=== PATIENT | female | born 1980 | race Caucasian/White ===

== ENCOUNTER 2020-05-12 10:45 | Outpatient (REF) | payer BC, SELFPAY ==
--- NOTE | 2020-05-12 09:15 | PAPFT_PTH ---
PATIENT: Dora Daly LOC: [facility] U#:[id number] AGE/SX: 39/F ROOM: RE05/12/[address]: Rebekah Grimm NP : [id number] BED: DIS: 05/12/2020 SPEC #: [id number] RECD: 05/12/20 13:00 STATUS: AMY VELIZ #: [id number] KIT: 05/12/20 09:[address]: Rebekah Grimm NP DEPT: [facility] Cytology RECD BY: Tracy Simental ENTERED: 05/12/20 13:01 SP TYPE: PAPFT OTHR DR: Unknown,Unknown Tissues: 1 - CX/ENDOCX FOR PAP SMEARS Procedures: PAP THIN PREP/UVM Screening HPV DNA PROBE Comments: [id number]
== END 2020-05-12 10:46 | disposition home or self-care (01) ==
LOC: LBN 10:45
PROVIDERS: Visit Provider Nurse Practitioner Women's Health
DX: Z12.4 Encounter for screening for malignant neoplasm of cervix (principal); Z11.51 Encounter for screening for human papillomavirus (HPV)
CPT/HCPCS: 88142; 87624

== ENCOUNTER 2020-06-15 03:29 | Outpatient (CLI) | payer BC, SELFPAY ==
[2020-06-15 11:11] LABS: TSH (W/Ref FT4) 0.92 uIU/mL (0.36-3.74)
== END 2020-06-15 03:30 | disposition home or self-care (01) ==
LOC: LBO 03:29
PROVIDERS: PCP Nurse Practitioner Adult Health; Visit Provider Nurse Practitioner Women's Health
DX: L65.9 Nonscarring hair loss, unspecified (principal); Z83.49 Family history of other endocrine, nutritional and metabolic diseases
CPT/HCPCS: 36415; 84443

== ENCOUNTER 2020-08-26 02:10 | Outpatient (CLI) | payer BC, SELFPAY ==
--- NOTE | 2020-08-26 09:00 | DI.MAMMO_ITS ---
Exam(s) MAMMO SCREENING EXAM: MAMMO SCREENING CLINICAL HISTORY: screening TECHNIQUE: Mammograms were interpreted according to the usual protocol including computer analysis w [employer] CAD system, tomosynthesis and C-view imaging. COMPARISON: None. Baseline examination. FINDINGS: The breasts are composed of heterogeneously dense fibroglandular densities, Breast Density category C . In the left breast, there are 2 adjacent circumscribed nodule seen in the subareolar region. There i s an additional circumscribed nodule seen in the medial central tissue. Spot compression views and u ltrasound are requested for further evaluation. No suspicious masses or suspicious microcalcificatio ns are seen in the right breast.. No skin thickening or abnormal axillary lymph nodes are seen. . IMPRESSION: BI-RADS Cat 0 - Assessment Incomplete: Need additional imaging evaluation Breast Density Category C, heterogeneously Dense. The mammogram demonstrates the patient's breast tissue is dense. Dense breast tissue is very common a nd is not abnormal but dense breast tissue can make it harder to find cancer on a mammogram. Also, de nse breast tissue may increase breast cancer risk. This information about the result of the mammogram report was provided to the patient to raise their awareness. Use this report when you speak with the patient about their risks for breast cancer, which includes their family history. At that time, you may recommend additional screening tests (Ultrasound or MRI) as they might be useful based on their r isk. A negative radiographic report should not delay biopsy if a dominant or clinically suspicious mass is present. Up to ten percent of cancers are not identified on mammography. A negative report may reinforce clinical impression. Adenosis and dense breasts may obscure an underlying neoplasm. False positive reports average 6 to 10%.
== END 2020-08-26 02:30 ==
PROVIDERS: PCP Nurse Practitioner Adult Health; Visit Provider Nurse Practitioner Women's Health
DX: Z12.31 Encounter for screening mammogram for malignant neoplasm of breast (principal); R92.8 Other abnormal and inconclusive findings on diagnostic imaging of breast
CPT/HCPCS: 77063; 77067

== ENCOUNTER 2020-09-14 02:51 | Outpatient (CLI) | payer BC, SELFPAY ==
--- NOTE | 2020-09-14 | DI.US_ITS ---
Exam(s) MG MAMMO SCREEN CALL BACK UNI US BREAST LT LIMITED EXAM: MG MAMMO SCREEN CALL BACK UNI and U/S breast LT limited CLINICAL HISTORY: F/U ABNL MAMMO, EVAL NODULE. TECHNIQUE: Craniocaudal and mediolateral oblique Full Field Digital Mammography views of the left br east with Computer Aided Diagnosis followed by Tomosynthesis and left breast ultrasound. COMPARISON: Priors available for comparison. FINDINGS: Mammography/Tomosynthesis: Masses/Architectural Distortion: There is again seen a well-circumscribed ovoid density in the medial half of the left breast on the additional views. A 0.7 cm well-circumscribed nodule is seen in the retroareolar region of the left breast. Microcalcifictions: No suspicious pleomorphic-type are seen. Skin Thickening/Nipple Retraction: None. Left breast US: Echotexture: Normal appearance of the glandular tissue. Shadowing: No suspicious foci. Cyst: None. Solid lesions: There is a well-circumscribed radially oriented isoechoic nodule at the 10 o'clock pos ition of the left breast 3 cm from the nipple. It measures 1.1 x 0.7 x 1.3 cm. This would appear to correspond to the nodule seen on the mammogram. This may represent a benign lesion such as a fibroa denoma. Ductal dilation: There are few mildly dilated ducts at the 12 o'clock position 1 cm from the nipple. This likely corresponds to the mammographic finding. IMPRESSION: 1. No definite evidence of malignancy is noted. 2. A six-month follow-up left mammogram and ultrasound are recommended for re-evaluation. 3. The findings were discussed with the patient on the date of the examination. BI-RADS Category 3 - 6 month - Probably Benign Finding: Recommend follow-up imaging in 6 months Breast Density - Category C - Heterogeneously dense Breast density Category C or D implies that the patient has dense breast tissue. Dense breast tissue can make it harder to find cancer on a mammogram. Dense breast tissue is also associated with an incr eased risk of breast cancer. This information about the result of the mammogram report was provided to the patient to raise their awareness. Use this report when you speak with the patient about their risks for breast cancer, which includes their family history. At that time, you may recommend additional screening tests (Ultrasoun d or MRI) as these tests may add significant information. A negative radiographic report should not delay biopsy if a dominant or clinically suspicious mass is present. Up to ten percent of cancers are not identified on mammography. A negative report may reinforce clinical impression. Adenosis and dense breasts may obscure an underlying neoplasm. False positive reports average 6 to 10%. Patient will receive a letter notifying them of these results.
== END 2020-09-14 03:11 ==
PROVIDERS: PCP Nurse Practitioner Adult Health; Visit Provider Nurse Practitioner Women's Health
DX: R92.8 Other abnormal and inconclusive findings on diagnostic imaging of breast (principal); N63.22 Unspecified lump in the left breast, upper inner quadrant
CPT/HCPCS: 76642; 77063; 77067

== ENCOUNTER 2021-01-04 08:38 | Outpatient (CLI) | payer BC, SELFPAY ==
[2021-01-04 09:18] LABS: HCT 41.9 % (36.0-46.0); HGB 13.5 g/dL (11.2-15.7); MCHC 32.2 % (32.0-36.0); MCV 86.9 fL (80-95); MPV 10.7 fL (8.0-11.0); Platelet Count 281 10^3/uL (130-400); RBC 4.82 10^6/uL (3.93-5.22); RDW 13.2 % (11.7-14.6); RDW-SD 42.2 fL; WBC 5.07 10^3/uL (4.4-10.8)
[2021-01-04 10:16] LABS: Anion Gap 6.9 mmol/L (3-11); BUN 11 mg/dL (7-18); CO2 30.1 mmol/L (21.0-32.0); CREATININE 0.7 mg/dL (0.55-1.02); Calcium 8.7 mg/dL (8.5-10.1); Calculated LDL 151 mg/dL (<100); Chloride 105 mmol/L (98-107); Cholesterol 245 mg/dL (<200); Glucose 108 mg/dL (74-106); HDL Cholesterol 76 mg/dL (40-60); Potassium 4.5 mmol/L (3.5-5.1); Sodium 142 mmol/L (136-145); Triglyceride 91 mg/dL (<150)
[2021-01-04 10:34] LABS: FREE T4 0.92 ng/dL (0.76-1.46)
[2021-01-04 17:18] LABS: T3,Free 3.6 pg/mL (2.8-5.3)
[2021-01-05 09:01] LABS: Hemoglobin A1C 5.5 % (<5.7)
== END 2021-01-04 08:39 | disposition home or self-care (01) ==
LOC: LBO 08:38
PROVIDERS: PCP Nurse Practitioner Adult Health; Visit Provider Nurse Practitioner Adult Health
DX: R63.5 Abnormal weight gain; R73.01 Impaired fasting glucose; Z13.220 Encounter for screening for lipoid disorders; D22.9 Melanocytic nevi, unspecified
CPT/HCPCS: 36415; 80048; 80061; 85027; 83036; 84439; 84481

== ENCOUNTER 2021-01-04 10:16 | Outpatient (REF) | payer BC, SELFPAY | END 2021-01-04 10:17 | disposition home or self-care (01) | LOC: NCHCN 10:16 | PROVIDERS: PCP Nurse Practitioner Adult Health; Visit Provider Nurse Practitioner Adult Health | DX: R19.7 Diarrhea, unspecified (principal); B82.0 Intestinal helminthiasis, unspecified; R11.0 Nausea; L29.0 Pruritus ani | CPT/HCPCS: 87177 ==

== ENCOUNTER 2021-02-01 01:32 | Outpatient (CLI) | payer BC, SELFPAY ==
--- NOTE | 2021-02-01 06:45 | DI.MAMMO_ITS ---
Exam(s) US BREAST LT COMPLETE MG MAMMO DIAGNOSTIC UNI EXAM: MG MAMMO DIAGNOSTIC UNI and U/S breast LT CLINICAL HISTORY: 6 mo f/u,f/u abnl mammo, r92.8. TECHNIQUE: Craniocaudal and mediolateral oblique Full Field Digital Mammography views of the left br east with Computer Aided Diagnosis followed by Tomosynthesis and left breast ultrasound. COMPARISON: Priors available for comparison. FINDINGS: Mammography/Tomosynthesis: Masses/Architectural Distortion: The well-circumscribed round nodule in the medial left breast appear s stable. The smaller retroareolar nodule appears unchanged compared to the prior examination. Microcalcifictions: No suspicious pleomorphic-type are seen. Skin Thickening/Nipple Retraction: None. Left breast US: A targeted left breast ultrasound was performed. Echotexture: Normal appearance of the glandular tissue. Shadowing: No suspicious foci. Cyst: None. Solid lesions: The ovoid radially oriented hypoechoic 1.1 cm mass at the 10 o'clock position 3 cm fro m the nipple appears stable. Ductal dilation: The collection of ducts in the retroareolar region of the left breast at 12 o'clock 1 cm from the nipple appears stable. IMPRESSION: 1. No evidence of malignancy is noted. 2. A six-month follow-up left mammogram and ultrasound are requested for re-evaluation. 3. The findings were discussed with the patient on the date of the examination. BI-RADS Category 3 - 6 month - Probably Benign Finding: Recommend follow-up imaging in 6 months Breast Density - Category C - Heterogeneously dense Breast density Category C or D implies that the patient has dense breast tissue. Dense breast tissue can make it harder to find cancer on a mammogram. Dense breast tissue is also associated with an incr eased risk of breast cancer. This information about the result of the mammogram report was provided to the patient to raise their awareness. Use this report when you speak with the patient about their risks for breast cancer, which includes their family history. At that time, you may recommend additional screening tests (Ultrasoun d or MRI) as these tests may add significant information. A negative radiographic report should not delay biopsy if a dominant or clinically suspicious mass is present. Up to ten percent of cancers are not identified on mammography. A negative report may reinforce clinical impression. Adenosis and dense breasts may obscure an underlying neoplasm. False positive reports average 6 to 10%. Patient will receive a letter notifying them of these results.
== END 2021-02-01 01:52 ==
PROVIDERS: PCP Nurse Practitioner Adult Health; Visit Provider Nurse Practitioner Women's Health
DX: R92.8 Other abnormal and inconclusive findings on diagnostic imaging of breast (principal); N63.22 Unspecified lump in the left breast, upper inner quadrant; N60.42 Mammary duct ectasia of left breast
CPT/HCPCS: 76642; 77061; 77065; G0279

== ENCOUNTER → 2021-08-04 03:04 | Outpatient (CLI) | payer BC, SELFPAY ==
--- NOTE | 2021-08-04 08:30 | DI.MAMMO_ITS ---
Exam(s) US BREAST LT COMPLETE US BREAST RT COMPLETE MG MAMMO DIAGNOSTIC BI EXAM: MG MAMMO DIAGNOSTIC BI AND BILATERAL COMPLETE BREAST ULTRASOUND CLINICAL HISTORY: 6 month follow up, 6 mo f/u, f/u to abnl mammo, R92.8. TECHNIQUE: Both CC and MLO mammographic images of both breast were obtained with 3D tomosynthesis te chnique and utilizing computer aided detection (CAD). Also performed bilateral spot compression view s BILATERAL COMPLETE BREAST ULTRASOUND: All 4 quadrants of both breasts were scanned as were the retroa reolar regions. Also both axillary regions scanned. COMPARISON: Prior mammograms were reviewed, the most recent being January 2021. Prior ultrasound left breast also reviewed FINDINGS: DIAGNOSTIC BILATERAL MAMMOGRAM: The noncalcified lobulated nodule in the left breast is again noted and exhibits minimal if any signi ficant change. Possible additional nodule seen but spot compression view performed renders this area less concerning and similar in appearance to prior mammograms. In the opposite-right breast there is a skin mole noted inferiorly. Other nodular densities also mireya ear to dissipate on additional spot compression CC view performed today. There are no malignant-appearing microcalcification groups in either breast and there is no new archi tectural distortion or skin thickening-traction. BILATERAL COMPLETE BREAST ULTRASOUND: LEFT BREAST: At the 12 o'clock position the previously described solid lobulated well-defined nodule (previously described at 10 o'clock position) is again noted, measuring 11 by a 6 millimeters, unchan ged. It exhibits slightly increased through transmission. This is most probably a fibroadenoma. Th ere are no other focal ultrasound findings in all 4 quadrants of the left breast and there is no mayela opathy in the left axilla. RIGHT BREAST: At the 9 o'clock position there is a benign-appearing wider than taller 7 x 3 millimete r finding which is either hemorrhagic microcyst or another smaller fibroadenoma. It exhibits slightl y increased through transmission. There are no other focal ultrasound findings in the 4 quadrants of the right breast. There is no adenopathy in the right axilla. IMPRESSION: 1. Stable mammographic findings. 2. Stable size and appearance of the left breast nodule on ultrasound which is probably a fibroadenom a, unchanged from baseline mammogram and baseline ultrasound of the August 2020. 3. Solitary benign-appearing finding in the opposite-right breast at the 9 o'clock position which is either a hemorrhagic microcyst or smaller fibroadenoma. Today was the 1st ultrasound of the right br east. This finding is hidden subjacent to her dense fibroglandular tissue on mammography. Appropriate follow-up (as discussed by myself with the patient today) is repeat bilateral breast ultr asound exam in 6 months. As I explained to this patient today, we must establish that these findings are stable for a total of 2 years on a q.6 months basis. . The patient was informed of the findings and follow-up recommendations prior to leaving the [facility] t today. BI-RADS Category 3 - 6 month - Probably Benign Finding: Recommend follow-up BILATERAL BREAST ULTRASOU ND in 6 months Density: Breast density Category C or D implies that the patient has dense breast tissue. Dense breast tissue can make it harder to find cancer on a mammogram. Dense breast tissue is also associated with an incr eased risk of breast cancer. This information about the result of the mammogram report was provided to the patient to raise their awareness. Use this report when you speak with the patient about their risks for breast cancer, which includes their family history. At that time, you may recommend additional screening tests (Ultrasoun d or MRI) as these tests may add significant information. A negative radiographic report should not delay biopsy if a dominant or clinically suspicious mass is present. Up to ten percent of cancers are not identified on mammography. A negative report may reinforce clinical impression. Adenosis and dense breasts may obscure an underlying neoplasm. False positive reports average 6 to 10%. Patient will receive a letter notifying them of these results.
== END ==
PROVIDERS: PCP Nurse Practitioner Adult Health; Visit Provider Nurse Practitioner Women's Health
DX: R92.8 Other abnormal and inconclusive findings on diagnostic imaging of breast (principal); N63.25 Unspecified lump in the left breast, overlapping quadrants; R92.2 Inconclusive mammogram
CPT/HCPCS: 76642; 77062; 77066; G0279

== ENCOUNTER 2022-02-07 02:19 | Outpatient (CLI) | payer BC, SELFPAY ==
[2022-02-07 12:36] LABS: HCT 40.2 % (36.0-46.0); HGB 13.1 g/dL (11.2-15.7); MCH 28.3 pg (27.0-33.0); MCHC 32.6 % (32.0-36.0); MCV 87 fL (80-95); MPV 11.7 fL (8.0-11.0); Platelet Count 251 10^3/uL (130-400); RBC 4.63 10^6/uL (3.93-5.22); RDW 13.2 % (11.7-14.6); WBC 5.83 10^3/uL (4.4-10.8)
[2022-02-07 13:22] LABS: ALT 19 U/L (14-59); AST 24 U/L (15-37); Albumin 3.6 g/dL (3.4-5.0); Alkaline Phosphatase 52 U/L (46-116); Anion Gap 3.8 mmol/L (3-11); BUN 11 mg/dL (7-18); Bilirubin, Total 0.5 mg/dL (0.2-1.0); CO2 30.2 mmol/L (21.0-32.0); CREATININE 0.8 mg/dL (0.55-1.02); Calcium 8.5 mg/dL (8.5-10.1); Calculated LDL 129 mg/dL (<100); Chloride 104 mmol/L (98-107); Cholesterol 215 mg/dL (<200); Estimated GFR 94.87 (mL/min/1.73m2); Folate 7.8 ng/mL (8.6-20.0); Glucose 96 mg/dL (74-106); HDL Cholesterol 73 mg/dL (40-60); Potassium 4.3 mmol/L (3.5-5.1); Sodium 138 mmol/L (136-145); Triglyceride 66 mg/dL (<150); Vitamin B12 512 pg/mL (193-986)
== END 2022-02-07 02:20 | disposition home or self-care (01) ==
LOC: LOS 02:19
PROVIDERS: PCP Nurse Practitioner Adult Health; Visit Provider Nurse Practitioner Adult Health
DX: I73.00 Raynaud's syndrome without gangrene (principal); L65.9 Nonscarring hair loss, unspecified; R73.01 Impaired fasting glucose; Z13.1 Encounter for screening for diabetes mellitus; Z13.220 Encounter for screening for lipoid disorders
CPT/HCPCS: 36415; 80053; 80061; 85027; 82607; 82746

== ENCOUNTER 2022-07-26 03:02 | Outpatient (CLI) | payer BC, SELFPAY ==
--- NOTE | 2022-07-26 07:50 | DI.US_ITS ---
Exam(s) US BREAST LT LIMITED MG MAMMO DIAGNOSTIC BI EXAM: MG MAMMO DIAGNOSTIC BI and U/S breast LT limited CLINICAL HISTORY: 6 month f/u,F/U MAMMO, R92.8. TECHNIQUE: Craniocaudal and mediolateral oblique Full Field Digital Mammography views with Computer Aided Diagnosis followed by Tomosynthesis and left breast ultrasound. COMPARISON: Comparison is made with prior examinations. FINDINGS: Mammography/Tomosynthesis: Masses/Architectural Distortion: There is stable bilateral breast nodules. The nodule in the medial left breast is unchanged in size. No areas of architectural distortion are seen. Microcalcifictions: No suspicious pleomorphic-type are seen. Skin Thickening/Nipple Retraction: None. Limited left breast US: Echotexture: Normal appearance of the glandular tissue. Shadowing: No suspicious foci. Cyst: The well-circumscribed hypoechoic nodule 9-10 o'clock position of the left breast 3 cm from the nipple is unchanged. Solid lesions: None seen. Ductal dilation: None. IMPRESSION: 1. No evidence of malignancy is noted. 2. Unless there is more urgent need, follow-up screening mammography is recommended, as per [place] [employer] guidelines. 3. The findings were discussed with the patient on the date of the examination. BI-RADS Category 2 - Benign Findings Breast Density - Category C - Heterogeneously dense Breast density Category C or D implies that the patient has dense breast tissue. Dense breast tissue can make it harder to find cancer on a mammogram. Dense breast tissue is also associated with an incr eased risk of breast cancer. This information about the result of the mammogram report was provided to the patient to raise their awareness. Use this report when you speak with the patient about their risks for breast cancer, which includes their family history. At that time, you may recommend additional screening tests (Ultrasoun d or MRI) as these tests may add significant information. A negative radiographic report should not delay biopsy if a dominant or clinically suspicious mass is present. Up to ten percent of cancers are not identified on mammography. A negative report may reinforce clinical impression. Adenosis and dense breasts may obscure an underlying neoplasm. False positive reports average 6 to 10%. Patient will receive a letter notifying them of these results.
== END 2022-07-26 03:22 ==
LOC: DI 03:02
PROVIDERS: PCP Nurse Practitioner Adult Health; Visit Provider Nurse Practitioner Women's Health
DX: R92.8 Other abnormal and inconclusive findings on diagnostic imaging of breast (principal); Z12.31 Encounter for screening mammogram for malignant neoplasm of breast
CPT/HCPCS: 76642; 77062; 77066; G0279

== ENCOUNTER 2022-12-01 04:32 | Outpatient (CLI) | payer BC, SELFPAY ==
[2022-12-01 08:11] LABS: HCT 41.6 % (36.0-46.0); HGB 13.7 g/dL (11.2-15.7); MCH 28.2 pg (27.0-33.0); MCHC 32.9 % (32.0-36.0); MCV 86 fL (80-95); MPV 10.4 fL (8.0-11.0); Platelet Count 243 10^3/uL (130-400); RBC 4.85 10^6/uL (3.93-5.22); RDW 13.2 % (11.7-14.6); RDW-SD 41.5 fL; WBC 5.92 10^3/uL (4.4-10.8)
[2022-12-01 08:53] LABS: Anion Gap 6.5 mmol/L (3-11); BUN 11 mg/dL (7-18); CO2 27.5 mmol/L (21.0-32.0); CREATININE 0.7 mg/dL (0.55-1.02); Calcium 8.8 mg/dL (8.5-10.1); Calculated LDL 123 mg/dL (<100); Chloride 105 mmol/L (98-107); Cholesterol 208 mg/dL (<200); Estimated GFR 110.67 (mL/min/1.73m2); Ferritin 23 ng/mL (8-252); Folate 13.2 ng/mL (8.6-20.0); Glucose 108 mg/dL (74-106); HDL Cholesterol 71 mg/dL (40-60); Magnesium 2.2 mg/dL (1.8-2.4); Potassium 4.3 mmol/L (3.5-5.1); Sodium 139 mmol/L (136-145); TSH (W/Ref FT4) 1.13 uIU/mL (0.36-3.74); Triglyceride 72 mg/dL (<150); Vitamin B12 478 pg/mL (193-986)
[2022-12-01 09:18] LABS: Vitamin D 25 Total 20.9 ng/mL (30-100)
== END 2022-12-01 04:33 | disposition home or self-care (01) ==
LOC: LBO 04:32
PROVIDERS: Absent Provider Nurse Practitioner Adult Health; PCP Nurse Practitioner Adult Health; Visit Provider Nurse Practitioner Adult Health
DX: N95.9 Unspecified menopausal and perimenopausal disorder (principal); R73.01 Impaired fasting glucose; Z13.1 Encounter for screening for diabetes mellitus; Z13.220 Encounter for screening for lipoid disorders; Z13.29 Encounter for screening for other suspected endocrine disorder
CPT/HCPCS: 36415; 80048; 80061; 82306; 85027; 82607; 82728; 82746; 83735; 84443

== ENCOUNTER 2023-12-28 00:21 | Outpatient (CLI) | payer BC, SELFPAY ==
--- OUTSIDE RECORDS SUMMARY | 2023-12-28 00:23 | XMS_ITS | Encounter Summary ---
Author Organization [facility] Address [address] [place] [address] Care Team Providers Care Fast Food Team Member Name Role Phone Unavailable Primary Care Provider Unavailabl e Encounter Details Date Type Department Care Team (Late st Contact Info) Description 01/04/2021 Lab Requisition [facility] Pathology & [place] [address] Outr Resulting Lab, Provider Social History Tobacco Use Types Packs/Day Years Used Date Smoking Tobacco: Never Assessed Sex and Gender Information Value Date Recorded Sex Assigned at Not on file Gender Identity Not on file Sexual Orientation Not on file documented as of this encounter Plan of Treatment Not on file documented as of this encounter Procedures Procedure Name Priority Date/Time Associated Diagnosis Comments T3 FREE Routine 01/04/2021 8:21 EST documented in this encounter Results * T3 FREE (01/04/2021 8:21 EST) T3, Free 3.6 2.8 - 5.3 pg/mL 01/04/2021 17:12 EST [facility] Blood VENOUS BLOOD / Unknown 01/04/2021 8:21 EST 01/04/2021 16:33 EST Provider Outr Resulting Lab CHEMISTRY & BLOOD GAS ORDERABLES [facility] [address] [place] [address] documented in this encounter Visit Diagnoses Not on filedocumented in this encounter
--- OUTSIDE RECORDS SUMMARY | 2023-12-28 00:23 | XMS_ITS | Encounter Summary ---
Author Organization [facility] Address [address] [place] [address] Care Team Providers Care Generating Plant Superintendent Name Role Phone Unavailable Primary Care Provider Unavailabl e Encounter Details Date Type Department Care Team (Late st Contact Info) Description 05/14/2020 Lab Requisition [facility] Pathology & [facility] [address] [place] [address] Rebekah Grimm, AVIONICS SYSTEMS ENGINEER [address] [id number] Encounter for other general examination Social History Tobacco Use Types Packs/Day Years Used Date Smoking Tobacco: Never Assessed Sex and Gender Information Value Date Recorded Sex Assigned at Not on file Gender Identity Not on file Sexual Orientation Not on file documented as of this encounter Plan of Treatment Not on file documented as of this encounter Procedures Procedure Name Priority Date/Time Associated Diagnosis Comments PAP TEST Today 05/12/2020 9:15 EDT Encounter for other general examination HPV DNA DETECTION WITH GENOTYPING, PCR Today 05/12/2020 9:15 EDT Encounter for other general examination documented in this encounter Results * HUMAN PAPILLOMAVIRUS (HPV) DETECTION-HIGH RISK TYPES (05/12/2020 9:15 EDT) HPV other High Risk types, PCR Negative Negative 05/26/2020 14:16 EDT [facility] Comment:No E6 or E7 mRNA is detected from HPV types 16,18,31,33,35,39,45,51,52,56,58,59,66, and 68 by inspector automatic typewriter mediated amplification. Papanicolaou smear specimen (specimen) CERVIX UTERI STRUCTURE / Unknown 05/12/2020 9:15 EDT 05/21/2020 11:26 EDT Rebekah Grimm AVIONICS SYSTEMS ENGINEER MICROBIOLOGY - GE NERAL ORDERABLES [facility] [address] [place] [address] * PAP TEST (05/12/2020 9:15 EDT) Specimens A. Cervix and/or Endocervix , ThinPrep Imaging System with Manual Evaluation 05/26/2020 14:16 EDT [facility] Specimen Adequacy Satisfactory for Evaluation - transformation zone component present 05/26/2020 14:16 EDT [facility] General Categorization Negative for intraepithelial lesion or malignancy 05/26/2020 14:16 EDT [facility] Attestation . 05/26/2020 14:16 EDT [facility] at 1416 Clinical History See below 05/27/19 14:16 EDT [facility] HPV The result for the Human Papillomavirus (HPV) Detection-High Risk Types is Negative. No E6 or E7 mRNA is detected from HPV types 16,18,31,33,35,39 ,45,51,52,56,58,5 9,66, and 68 by inspector automatic typewriter mediated amplification.Simran ting was performed on specimen [id number] and was resulted on 05/26/2020 1413 EDT by BUFFY, LAB INSTRUMENT RESULTS IN 05/26/2020 14:16 EDT [facility] Performing Lab [facility] 05/26/2020 14:16 EDT [facility] Scanned Images 05/26/2020 14:16 EDT [facility] Papanicolaou smear specimen (specimen) CERVIX UTERI STRUCTURE / Unknown 05/12/2020 9:15 EDT 05/14/2020 10:52 EDT Rebekah Grimm AVIONICS SYSTEMS ENGINEER PATHOLOGY ORDERAB LES [facility] [address] [place] [address] documented in this encounter Visit Diagnoses Diagnosis Encounter for other general examination documented in this encounter
--- OUTSIDE RECORDS SUMMARY | 2023-12-28 00:23 | XMS_ITS | Encounter Summary ---
Author Organization [facility] Address [address] [place] [address] Care Team Providers Care Nursing Associate Name Role Phone Unavailable Primary Care Provider Unavailabl e Encounter Details Date Type Department Care Team (Late st Contact Info) Description 01/04/2021 Lab Requisition [facility] Pathology & Laboratory Medicine - [address] [address] Outr Resulting Lab, Provider Social History Tobacco [...] Procedure Name Priority Date/Time Associated Diagnosis Comments OVA/PARASITE EXAM Routine 01/04/2021 7:00 EST documented in this encounter Results * OVA/PARASITE EXAM (01/04/2021 7:00 EST) Parasite No ova and parasites seen. 01/05/2021 12:03 EST [facility] Feces SPECIMEN FROM RECTUM / Unknown 01/04/2021 7:00 EST 01/04/2021 21:35 EST Narrative [facility] - 01/05/2021 12:03 EST (If Cryptosporidium, Cyclospora, or Microsporidium are suspected, specific tests must be requested.) Single negative specimen does not rule out the possibility of a parasitic infection. Provider Outr Resulting Lab MICROBIOLOGY - GENERAL ORDERABLES [facility] [address] [place] [address] documented in this encounter Visit Diagnoses Not on filedocumented in this encounter
--- OUTSIDE RECORDS SUMMARY | 2023-12-28 00:23 | XMS_ITS | Referral Summary ---
Author Organization [facility] Address [address] [place] [address] Care Team Providers Care Hvac Design Mechanical Engineer Name Role Phone Unavailable Primary Care Provider Unavailabl e Social History Tobacco Use Types Packs/Day Years Used Date Smoking Tobacco: Never Assessed Sex and Gender Information Value Date Recorded Sex Assigned at Not on file Gender Identity Not on file Sexual Orientation Not on file Plan of Treatment Not on file
--- OUTSIDE RECORDS SUMMARY | 2023-12-28 00:23 | XMS_ITS | Clinical Summary ---
Author Organization [facility] Address [address] [place] [id number] Care Team Providers Care Web Consultant Name Role Phone Unavailable Primary Care Provider Unavailabl e Social History Tobacco Use Types Packs/Day Years Used Date Smoking Tobacco: Never Assessed Sex and Gender Information Value Date Recorded Sex Assigned at Not on file Gender Identity Not on file Sexual Orientation Not on file Plan of Treatment Health Maintenance Due Date Last Done Comments Hepatitis C Screen 1980 Hepatitis B Vaccine (1 of 3 - 19+ 3-dose series) 08/14 COVID-19 Vaccine ( season) 2022
--- NOTE | 2023-12-28 08:32 | DI.MAMMO_ITS ---
Exam(s) MAMMO SCREENING EXAM: MAMMO SCREENING CLINICAL HISTORY: screening,Z12.39 TECHNIQUE: Bilateral full field digital CC and MLO mammographic images were obtained with 3D tomosyn thesis and utilizing computer aided detection (CAD). COMPARISON: Available for comparison. FINDINGS: Masses/Architectural Distortion: There are bilateral breast nodules which are stable. No new nodules . No areas of architectural distortion. Microcalcifications: No suspicious pleomorphic-type are seen. Skin Thickening/Nipple Retraction: None. IMPRESSION: 1. No significant interval change with no specific features of malignancy noted. 2. Unless there is more urgent need, screening mammography is recommended, as per [employer] guidelines. BI-RADS Category 2 - Benign Findings Breast Density - Category C - Heterogeneously dense Breast density category C or D implies that the patient has dense breast tissue. Dense breast tissue is very common and is not abnormal but dense breast tissue can make it harder to find cancer on a ma mmogram. Also, dense breast tissue may increase their breast cancer risk. This information about the result of the mammogram report was provided to the patient to raise their awareness. Use this report when you speak with the patient about their risks for breast cancer, which includes their family hist ory. At that time, you may recommend for more screening tests (Ultrasound or MRI) as they might be us eful based on their risk. A negative radiographic report should not delay biopsy if a dominant or clinically suspicious mass is present. Up to ten percent of cancers are not identified on mammography. A negative report may reinforce clinical impression. Adenosis and dense breasts may obscure an underlying neoplasm. False positive reports average 6 to 10%. Patient will receive a letter notifying them of these results.
== END 2023-12-28 00:41 ==
LOC: DI 00:21
PROVIDERS: PCP Nurse Practitioner Adult Health; Visit Provider Nurse Practitioner Adult Health
DX: Z12.31 Encounter for screening mammogram for malignant neoplasm of breast (principal); R92.333 Mammographic heterogeneous density, bilateral breasts; D24.9 Benign neoplasm of unspecified breast
CPT/HCPCS: 77063; 77067

== ENCOUNTER 2023-12-28 14:59 | Outpatient (CLI) | payer BC, SELFPAY ==
[2023-12-28 08:22] LABS: Hemoglobin A1C 5.6 % (<5.7)
[2023-12-28 09:10] LABS: Anion Gap 6.1 mmol/L (3-11); BUN 15 mg/dL (7-18); CO2 28.9 mmol/L (21.0-32.0); CREATININE 0.7 mg/dL (0.55-1.02); Calcium 8.6 mg/dL (8.5-10.1); Calculated LDL 110 mg/dL (<100); Chloride 107 mmol/L (98-107); Cholesterol 196 mg/dL (<200); Estimated GFR 109.98 (mL/min/1.73m2); Folate 11.4 ng/mL (8.6-20.0); Glucose 101 mg/dL (74-106); HDL Cholesterol 74 mg/dL (40-60); Potassium 4.2 mmol/L (3.5-5.1); Sodium 142 mmol/L (136-145); Triglyceride 60 mg/dL (<150); Vitamin D 25 Total 21.1 ng/mL (30-100)
== END 2023-12-28 15:00 | disposition home or self-care (01) ==
LOC: LBO 14:59
PROVIDERS: PCP Nurse Practitioner Adult Health; Visit Provider Nurse Practitioner Adult Health
DX: R73.01 Impaired fasting glucose (principal); E53.8 Deficiency of other specified B group vitamins; E55.9 Vitamin D deficiency, unspecified
CPT/HCPCS: 36415; 80048; 80061; 82306; 82746; 83036

== ENCOUNTER → 2025-01-06 02:08 | Outpatient (CLI) | payer OTHER, SELFPAY ==
--- NOTE | 2025-01-06 12:35 | DI.MAMMO_ITS ---
Exam(s) MAMMO SCREENING EXAM: MAMMO SCREENING CLINICAL HISTORY: screening,z12.39 TECHNIQUE: Mammograms were interpreted according to the usual protocol including computer analysis with CAD system, tomosynthesis and C-view imaging. COMPARISON: 2020 through 2023 FINDINGS: The breasts are composed of heterogeneously dense fibroglandular densities, Breast Density category C. No suspicious masses or suspicious microcalcifications are seen. There is a stable area of nodularity in the medial left breast. No skin thickening or abnormal axillary lymph nodes are seen. There has been no significant change from prior exams. IMPRESSION: BI-RADS Category 2 - Negative Mammogram with benign findings. Yearly screening mammography is recommended. Breast Density: Category C - The breasts are heterogeneously dense, which may obscure small masses. Breast density Category C or D implies that the patient has dense breast tissue. Dense breast tissue can make it harder to find cancer on a mammogram. Dense breast tissue is also associated with an increased risk of breast cancer. This information about the result of the mammogram report was provided to the patient to raise their awareness. Use this report when you speak with the patient about their risks for breast cancer, which includes their family history. At that time, you may recommend additional screening tests (Ultrasound or MRI) as these tests may add significant information. A negative radiographic report should not delay biopsy if a dominant or clinically suspicious mass is present. Up to ten percent of cancers are not identified on mammography. A negative report may reinforce clinical impression. Adenosis and dense breasts may obscure an underlying neoplasm. False positive reports average 6 to 10%.
== END ==
LOC: DI 02:08
PROVIDERS: PCP Nurse Practitioner Adult Health; Visit Provider Nurse Practitioner Adult Health
DX: Z12.31 Encounter for screening mammogram for malignant neoplasm of breast (principal); R92.323 Mammographic fibroglandular density, bilateral breasts; R92.333 Mammographic heterogeneous density, bilateral breasts
CPT/HCPCS: 77063; 77067

== ENCOUNTER 2025-02-09 08:04 | Outpatient (CLI) | payer OTHER, SELFPAY ==
[2025-02-09 07:28] LABS: Abs Immature Grans 0.01 10^3/uL (0.0-0.06); HCT 40.2 % (36.0-46.0); HGB 13.3 g/dL (11.2-15.7); Immature Grans % 0.2 %; MCH 28.8 pg (27.0-33.0); MCHC 33.1 % (32.0-36.0); MCV 87 fL (80-95); MPV 10.3 fL (8.0-11.0); Platelet Count 276 10^3/uL (130-400); RBC 4.62 10^6/uL (3.93-5.22); RDW 13.0 % (11.7-14.6); RDW-SD 41.3 fL; WBC 5.94 10^3/uL (4.4-10.8)
[2025-02-09 07:48] LABS: Hemoglobin A1C 5.2 % (<5.7)
[2025-02-09 08:20] LABS: Folate 12.6 ng/mL (>5.38)
[2025-02-09 08:21] LABS: Vitamin D 25 Total 43 ng/mL (30-100)
[2025-02-09 08:22] LABS: TSH (W/Ref FT4) 1.03 uIU/mL (0.55-4.78); Vitamin B12 463 pg/mL (211-911)
[2025-02-09 08:30] LABS: ALT 11 U/L (10-49); AST 13 U/L (<34); Albumin 4.1 g/dL (3.2-5.0); Alkaline Phosphatase 52 U/L (46-116); Anion Gap 8.6 mmol/L (3-11); BUN 18 mg/dL (9-23); Bilirubin, Total 0.8 mg/dL (0.2-1.2); CO2 28.4 mmol/L (20.0-31.0); Calcium 8.9 mg/dL (8.3-10.6); Chloride 107 mmol/L (98-107); Cholesterol 218 mg/dL (<200); Glucose 102 mg/dL (74-106); HDL Cholesterol 66 mg/dL (>or=50); Potassium 4.1 mmol/L (3.5-5.1); Sodium 144 mmol/L (136-145); Total Protein 6.7 g/dL (5.7-8.2)
[2025-02-10 09:53] LABS: HIV-1/2 Ag & Ab Screen Negative (Negative)
[2025-02-10 10:04] LABS: Hepatitis C Ab w Rflx HCV PCR Negative (Negative)
== END 2025-02-09 08:05 | disposition home or self-care (01) ==
LOC: LBO 08:04
PROVIDERS: PCP Nurse Practitioner Adult Health; Visit Provider Nurse Practitioner Adult Health
DX: Z13.1 Encounter for screening for diabetes mellitus (principal); Z13.220 Encounter for screening for lipoid disorders; Z13.21 Encounter for screening for nutritional disorder; Z11.59 Encounter for screening for other viral diseases; Z11.4 Encounter for screening for human immunodeficiency virus [HIV]; Z13.0 Encounter for screening for diseases of the blood and blood-forming organs and certain disorders involving the immune mechanism; Z13.29 Encounter for screening for other suspected endocrine disorder
CPT/HCPCS: 36415; 80053; 80061; 82306; 86803; 87389; 82607; 82746; 83036; 84443; 85025